=== PATIENT | male | born 1945 | race Caucasian/White ===

== ENCOUNTER 2018-04-17 07:00 | Day surgery (SDC) | payer OTHER | END 2018-04-17 13:00 | disposition home or self-care (01) | LOC: AMB-ENDOS 07:00 | DX: C18.7 Malignant neoplasm of sigmoid colon (principal); K64.8 Other hemorrhoids ==

== ENCOUNTER 2018-05-21 11:00 | Inpatient (IN) | payer OTHER ==
[~2018-05-21] VITALS: Ht 175.3 cm; Wt 96.6 kg
[2018-05-21] MEDS ORDERED: LISINOPRIL5 MG PO (15:16)
[2018-05-27] MEDS ORDERED: INTEGRA F CAPS1 EACH PO (11:09)
[2018-05-27] MEDS ORDERED: NEURONTIN300 MG PO (13:47)
== END 2018-05-27 13:53 | disposition home or self-care (01) | DRG 330 ==
LOC: SURG 05-24 08:11 → O/R 05-24 08:11 → RECOVERY 05-24 11:00 → SURG 05-24 14:29
PROVIDERS: ADMIT Surgery
PROC: 07TC4ZZ Resection of Pelvis Lymphatic, Percutaneous Endoscopic Approach (ICD-10-PCS; 2018-05-24)
PROC: 0DJD8ZZ Inspection of Lower Intestinal Tract, Via Natural or Artificial Opening Endoscopic (ICD-10-PCS; 2018-05-24)
PROC: 0W3P8ZZ Control Bleeding in Gastrointestinal Tract, Via Natural or Artificial Opening Endoscopic (ICD-10-PCS; 2018-05-24)
PROC: 0DTN4ZZ Resection of Sigmoid Colon, Percutaneous Endoscopic Approach (ICD-10-PCS; principal; 2018-05-24 12:15)
DX: C18.7 Malignant neoplasm of sigmoid colon (principal); K91.840 Postprocedural hemorrhage of a digestive system organ or structure following a digestive system procedure; D62 Acute posthemorrhagic anemia; R33.8 Other retention of urine

== ENCOUNTER 2018-05-22 15:13 | Outpatient (CLI) | payer OTHER ==
[~2018-05-22 15:13] MED LIST: LISINOPRIL5 MG PO
== END 2018-05-22 15:30 | disposition home or self-care (01) ==
LOC: LAB 15:13
DX: Z01.811 Encounter for preprocedural respiratory examination (principal); Z01.812 Encounter for preprocedural laboratory examination